=== PATIENT | female | born 1975 | race Caucasian/White ===

== ENCOUNTER 2024-05-04 09:09 | Outpatient (CLI) | payer OTHER ==
[2024-05-04 11:33] LABS: HEMATOCRIT 33.5 % (36.0-45.00); HEMOGLOBIN 10.8 g/dL (12.0-15.00); MEAN CELL VOLUME 74.7 fL (80.00-100.00); MEAN CORPUSCULAR HGB CONC 32.1 g/dl (32.0-36.0); PLATELET COUNT 267 K/uL (150-450); RED BLOOD COUNT 4.48 M/uL (4.00-6.00); RED CELL DISTRIBUTION WIDTH 17.4 % (11.5-14.5)
[2024-05-04 11:59] LABS: PH,URINE 5.5 (5.0-8.0); URINE APPEARANCE Clear; URINE BILIRRUBIN Negative (NEGATIVE); URINE BLOOD Negative; URINE COLOR Yellow; URINE GLUCOSE Negative (NEGATIVE); URINE KETONE Negative (NEGATIVE); URINE LEUKOCYTE Negative; URINE NITRATE Negative; URINE PROTEIN Negative (NEGATIVE); URINE UROBILINOGEN 0.2 E.U./dl
[2024-05-04 12:00] LABS: URINE BACTERIA 483.4 uL (0.0-1933); URINE EPITHELIAL CELLS 10.6 uL (0.0-38.8); URINE RBC 2.9 uL (0.0-20.8); URINE WBC 6.9 uL (0.0-23.2)
[2024-05-04 12:31] LABS: % SATURACION 4.3 % (15-50); ALBUMIN 3.7 gm/dL (3.4-5.0); BILIRUBIN TOTAL 0.42 mg/dL (0.3-1.2); CALCIUM 8.6 mg/dL (8.5-10.1); CHOL HDL RATIO 3.2 (0-5.0); CREATININE SERUM 0.53 mg/dL (0.55-1.02); FERRITIN 2.2 NG/ML (8-252); GFR 123.12; GLOBULINA 3.9 G/DL (2.4-3.5); POTASSIUM 3.91 mEq/L (3.5-5.1); T4 FREE 0.95 NG/ML (0.76-1.46); T4 TOTAL 8.61 UG/DL (4.8-13.9); TOTAL PROTEIN 7.6 gm/dL (6.4-8.2); TSH 1.08 uIU/mL (0.358-3.74)
[2024-05-04 12:39] LABS: MANUAL PLATELET COUNT 412
[2024-05-04 12:40] LABS: PLATELET ESTIMATE NORMAL (NORMAL)
[2024-05-04 12:57] LABS: URINE CAST 0.14 uL (0.0-1.40)
[2024-05-04 13:18] LABS: FOLIC ACID 15.41 ng/ml (4.78-20); T3 TOTAL 1.01 ng/ml (0.846-2.02); VITAMIN D3 25 HYDROXY 27.66 ng/ml (30-120)
[2024-05-05 14:04] LABS: hgb a 97.8 % (96.4-98.8); hgb a2 2.2 % (1.8-3.2); hgb f 0 % (0.0-2.0); hgb s 0 % (0.0)
[2024-05-07 12:05] LABS: PARIETAL CELL ANTIBODIES 1.5 Units (0.0-20.0)
== END 2024-05-04 09:17 | disposition home or self-care (01) ==
LOC: LAB 09:09
PROVIDERS: ATTEND Internal Medicine Hematology & Oncology
DX: E11.9 Type 2 diabetes mellitus without complications (principal); I10 Essential (primary) hypertension; E03.9 Hypothyroidism, unspecified; D64.0 Hereditary sideroblastic anemia; Z80.1 Family history of malignant neoplasm of trachea, bronchus and lung; Z80.51 Family history of malignant neoplasm of kidney; Z80.49 Family history of malignant neoplasm of other genital organs; D50.8 Other iron deficiency anemias; E03.8 Other specified hypothyroidism; F33.9 Major depressive disorder, recurrent, unspecified; G61.81 Chronic inflammatory demyelinating polyneuritis; R79.9 Abnormal finding of blood chemistry, unspecified; R74.02 Elevation of levels of lactic acid dehydrogenase [LDH]; K76.89 Other specified diseases of liver; D55.0 Anemia due to glucose-6-phosphate dehydrogenase [G6PD] deficiency; E55.9 Vitamin D deficiency, unspecified; D51.1 Vitamin B12 deficiency anemia due to selective vitamin B12 malabsorption with proteinuria; M81.0 Age-related osteoporosis without current pathological fracture